=== PATIENT | female | born 1975 | race Caucasian/White ===

== ENCOUNTER 2023-03-15 20:38 | Emergency (ER) | payer OTHER ==
[~2023-03-15] VITALS: Ht 162.6 cm; Wt 74.8 kg
[2023-03-15 20:47] VITALS: BP_SYST 120; PULSE 86; RESP 18; TEMP 98.3; O2SAT 99
[2023-03-15 21:33] LABS: BASOPHILS % (AUTO) 0.6 % (0.0-2.0); EOSINOPHILS # (AUTO) 0.2 K/uL (0.0-0.4); EOSINOPHILS % (AUTO) 2.8 % (0.0-4.0); HEMOGLOBIN 12.8 g/dL (12.0-16.0); LYMPHOCYTES # (AUTO) 1.2 K/uL (1.0-5.5); MEAN CORPUSCULAR HEMOGLOBIN 32 pg (27-31); MEAN CORPUSCULAR HGB CONC 35 % (32-36); MEAN CORPUSCULAR VOLUME 92 fL (79.0-98.0); MONOCYTES # (AUTO) 0.5 K/uL (0.0-1.0); MONOCYTES % (AUTO) 7.1 % (1.7-9.3); NEUTROPHILS # (AUTO) 5.3 K/uL (1.8-7.7); NEUTROPHILS % (AUTO) 72.5 % (40.0-70.0); PLATELET COUNT (AUTO) 254 K/uL (130-430); RED BLOOD CELL COUNT(AUTO) 4.02 MIL/uL (4.2-6.2); RED CELL DISTRIBUTION WIDTH 13.2 % (9.0-15.0); WHITE BLOOD COUNT (AUTO) 7.3 K/uL (4.8-10.8)
[2023-03-15 22:13] LABS: ANION GAP 9 (5-15); CALCIUM 8.9 mg/dL (8.4-11.0); CARBON DIOXIDE 26 mmol/L (23-29); CHLORIDE 99 mmol/L (98-107); CREATININE 0.74 mg/dL (0.55-1.30); GFR AFRICAN AMERICAN 108 mL/min (>90); GLUCOSE 253 mg/dL (74-106); POTASSIUM 3.8 mmol/L (3.5-5.1); SODIUM SERUM 134 mmol/L (136-145); UREA NITROGEN, BLOOD 19 mg/dL (8-21)
[2023-03-15] MEDS ORDERED: NEOM10SO7 EACH EAR (22:23)
[2023-03-15] MEDS ORDERED: CLIN-142 PO (22:23)
[2023-03-15] MEDS ORDERED: IBUP-1969 PO (22:23)
[2023-03-15] MEDS ORDERED: cefTRIAXone 1 GM in LIDOCAINE 1%, 20 ML MDV 2.1 ML IM ONE (22:30)
[2023-03-15 22:34] LABS: GFR NON AFRICAN-AMERICAN 89 mL/min (>90)
[2023-03-15] MEDS ORDERED: IBUPROFEN 800 MG TABLET ONE (22:39)
[2023-03-15 22:43] LABS: ACETONE, SERUM NEGATIVE (NEGATIVE)
[2023-03-15] MEDS ORDERED: IBUPROFEN 800 MG TABLET PO ONE (22:45)
[2023-03-15 22:53] VITALS: BP_SYST 120; PULSE 86; RESP 18; TEMP 98.3; O2SAT 99
== END 2023-03-15 23:53 | disposition home or self-care (01) ==
LOC: SED 20:38
DX: H60.92 Unspecified otitis externa, left ear (principal); Z79.899 Other long term (current) drug therapy
CPT/HCPCS: 99283; 80048; 82009; 85025; 36415; 96372; 83605; 82397; J0696; J2001